=== PATIENT | female | born 1970 | race Caucasian/White ===

== ENCOUNTER 2016-08-17 08:17 | Emergency (ER) | payer OTHER ==
[2016-08-17] MEDS ORDERED: Ibuprofen 400 MG TAB ONE (09:09)
== END 2016-08-17 10:17 | disposition home or self-care (01) ==
LOC: ER 08:17
DX: S92.001A Unspecified fracture of right calcaneus, initial encounter for closed fracture (principal); W10.9XXA Fall (on) (from) unspecified stairs and steps, initial encounter